=== PATIENT | male | born 1950 | race Caucasian/White ===

== ENCOUNTER 2022-03-08 19:15 | Emergency (ER) | payer BC ==
[2022-03-08] MEDS ORDERED: METOCLOPRAMIDE HCL INJECTION 10 MG/2 ML VIAL IVPUSH ONE (19:55)
[2022-03-08] MEDS ORDERED: SODIUM CHLORIDE 0.9% 500 ML INFUS.BAG IV ONE (19:55)
[2022-03-08 20:02] VITALS: RESP 20; TEMP 98; BMI 28.8
[2022-03-08] MEDS ORDERED: BEBTELOVIMAB (EUA) 175 MG/2 ML VIAL IVPUSH ONE (21:15)
[2022-03-08 21:44] LABS: BASO % 0.9 % (0-2.0); EOS % 0.1 % (0-4.5); HEMATOCRIT 44.4 % (35.4-49); HEMOGLOBIN 15.7 GM/dL (11.7-16.9); LYMPH % 25.9 % (8-40); MCH 30.7 pg (25.7-33.7); MCHC 35.3 g/dl (32.0-35.9); MEAN CELL VOLUME 86.9 fl (80-96); MEAN PLT VOLUME 8.3 fl (7.5-11.1); MONO % 10.5 % (3.8-10.2); NEUT % 62.6 % (42.8-82.8); PLATELET COUNT 200 10^3/uL (134-434); RDW 13.4 % (11.9-15.9); WHITE BLOOD COUNT 5.3 K/mm3 (4.0-10.0)
[2022-03-08 22:03] LABS: CALCIUM 8.8 mg/dL (8.5-10.1)
[2022-03-08 22:04] LABS: ALBUMIN 3.6 g/dl (3.4-5.0)
[2022-03-08 22:07] LABS: CREATININE 1.5 mg/dL (0.55-1.3)
[2022-03-08 22:09] LABS: BILIRUBIN,TOTAL 0.8 mg/dL (0.2-1); TOT PROT 7.4 g/dl (6.4-8.2)
[2022-03-08 23:51] VITALS: BP 127/77; PULSE 95
== END 2022-03-08 23:50 | disposition home or self-care (01) ==
LOC: JER 19:15
PROC: 3E03329 Introduction of Other Anti-infective into Peripheral Vein, Percutaneous Approach (ICD-10-PCS; principal; 2022-03-08)
PROC: 3E033GC Introduction of Other Therapeutic Substance into Peripheral Vein, Percutaneous Approach (ICD-10-PCS; 2022-03-08)
DX: U07.1 COVID-19 (principal); R42 Dizziness and giddiness
CPT/HCPCS: 0241U-QW; 36415; 70450-TC; 80053; 84484; 85025; 96374; 96375; 99284-25; M0222; Q0222

== ENCOUNTER 2022-08-03 15:50 | Inpatient (IN) | payer OTHER, BC ==
[2022-08-03 17:25] VITALS: BMI 28.8
[2022-08-03] MEDS ORDERED: ACETAMINOPHEN 500 MG TABLET (FP) PO ONE (18:22)
[2022-08-03] MEDS ORDERED: SODIUM CHLORIDE 1,000 ML IV STA (18:28)
[2022-08-03] MEDS ORDERED: ONDANSETRON 4 MG/2 ML VIAL ONE (20:19)
[2022-08-03] MEDS ORDERED: ACETAMINOPHEN 500 MG TABLET (FP) ONE (20:20)
[2022-08-03] MEDS ORDERED: ONDANSETRON 4 MG/2 ML VIAL IVPUSH ONE (20:33)
[2022-08-03 20:39] LABS: BASO % 1.5 % (0-2.0); EOS % 0.1 % (0-4.5); HEMATOCRIT 43.4 % (35.4-49); HEMOGLOBIN 14.6 GM/dL (11.7-16.9); LYMPH % 11.8 % (8-40); MCH 29.7 pg (25.7-33.7); MCHC 33.7 g/dl (32.0-35.9); MEAN PLT VOLUME 7.8 fl (7.5-11.1); MONO % 8.1 % (3.8-10.2); NEUT % 78.5 % (42.8-82.8); PLATELET COUNT 340 10^3/uL (134-434); RBC 4.93 M/mm3 (4.00-5.60); RDW 13.8 % (11.9-15.9); WHITE BLOOD COUNT 9.9 K/mm3 (4.0-10.0)
[2022-08-03 21:04] LABS: CALCIUM 9.5 mg/dL (8.5-10.1)
[2022-08-03 21:05] LABS: BLOOD UREA NITROGEN 16.8 mg/dL (7-18)
[2022-08-03 21:09] LABS: CREATININE 1.6 mg/dL (0.55-1.3); TOT PROT 8.4 g/dl (6.4-8.2)
[2022-08-03 21:10] LABS: BILIRUBIN,TOTAL 0.9 mg/dL (0.2-1)
[2022-08-03 21:31] LABS: INR 1.21 (0.83-1.09)
[2022-08-03 21:34] LABS: ACTIVATED PTT 27.7 SECONDS (25.2-36.5)
[2022-08-03 21:43] LABS: MAGNESIUM 1.8 mg/dL (1.8-2.4)
[2022-08-03 21:51] LABS: N-TERMINAL BNP 3864.4 pg/ml (5-125)
[2022-08-03] MEDS ORDERED: IBUPROFEN 400 MG TABLET (FP) PO ONE ×2 (22:04→22:37)
[2022-08-03] MEDS ORDERED: METOPROLOL TARTRATE 50 MG TABLET (FP) PO ONE (22:10)
[2022-08-03] MEDS ORDERED: METOPROLOL TARTRATE 50 MG TABLET (FP) ONE (22:37)
[2022-08-03] MEDS ORDERED: SODIUM CHLORIDE 1,000 ML IV SCH (23:15)
[2022-08-04] MEDS ORDERED: PNEUMOC 20-VAL CONJ-DIP CRM/PF 0.5 ML SYRINGE IM ONE (08:00)
[2022-08-04 08:35] LABS: INR 1.18 (0.83-1.09); PROTHROMBIN TIME (PATIENT) 13.6 SEC (9.7-13.0)
[2022-08-04 08:38] LABS: BASO % 0.6 % (0-2.0); EOS % 1.6 % (0-4.5); HEMATOCRIT 39.5 % (35.4-49); HEMOGLOBIN 13.4 GM/dL (11.7-16.9); LYMPH % 23.7 % (8-40); MCH 29.8 pg (25.7-33.7); MEAN CELL VOLUME 87.6 fl (80-96); MONO % 12.3 % (3.8-10.2); NEUT % 61.8 % (42.8-82.8); PLATELET COUNT 302 10^3/uL (134-434); RDW 13.7 % (11.9-15.9); WHITE BLOOD COUNT 8.7 K/mm3 (4.0-10.0)
[2022-08-04 08:54] LABS: ALBUMIN 3.2 g/dl (3.4-5.0); CALCIUM 8.5 mg/dL (8.5-10.1); MAGNESIUM 1.9 mg/dL (1.8-2.4)
[2022-08-04 08:56] LABS: TOT PROT 6.8 g/dl (6.4-8.2)
[2022-08-04 08:59] LABS: CREATININE 1.3 mg/dL (0.55-1.3); PHOSPHOROUS 3.2 mg/dL (2.5-4.9)
[2022-08-04] MEDS ORDERED: TERAZOSIN HCL 2 MG CAPSULE PO SCH (10:00)
[2022-08-04] MEDS ORDERED: APIXABAN 5 MG TABLET PO SCH (10:00)
[2022-08-04] MEDS ORDERED: amLODIPine BESYLATE 10 MG TABLET (FP) PO SCH (10:00)
[2022-08-04] MEDS: LOSARTAN 50MG/HCTZ 12.5MG 1 TAB PO SCH (10:27)
[2022-08-04] MEDS: ATORVASTATIN CA 10 MG TABLET (FP) PO SCH (10:28)
[2022-08-04] MEDS: APIXABAN 5 MG TABLET PO SCH ×2 (10:28→21:47)
[2022-08-04 14:10] LABS: EPI CELLS 2 /uL (0-25.1); HYALINE CASTS 1 /uL (0-3.1); PH,URINE 5.5 (5.0-8.0); URINE APPEARANCE CLEAR; URINE BACTERIA 1 /uL (0-1359); URINE BILIRUBIN NEGATIVE (NEGATIVE); URINE COLOR YELLOW; URINE GLUCOSE (UA) NEGATIVE (NEGATIVE); URINE KETONE NEGATIVE (NEGATIVE); URINE LEUK ESTERASE NEGATIVE (NEGATIVE); URINE NITRITE NEGATIVE (NEGATIVE); URINE PROTEIN TRACE (NEGATIVE); URINE RBC 12 /uL (0-23.9); URINE WBC 1 /uL (0-25.8)
[2022-08-04 16:59] LABS: ARTERIAL BLD GAS O2 SATURATION 92.8 % (95-98); ARTERIAL BLOOD GAS BASE EXCESS 0.7 mmol/L (-2-2); ARTERIAL BLOOD GAS PO2 62.1 mmHg (80-100); ARTERIAL BLOOD GAS pH 7.445 (7.350-7.450)
[2022-08-04 17:01] LABS: ALLENS TEST POSITIVE
[2022-08-05] MEDS: ACETAMINOPHEN 325 MG TABLET (FP) PO PRN ×2 (00:47→08:39)
[2022-08-05 07:47] LABS: BASO % 0.5 % (0-2.0); EOS % 2.6 % (0-4.5); HEMATOCRIT 41.7 % (35.4-49); HEMOGLOBIN 13.7 GM/dL (11.7-16.9); LYMPH % 30.4 % (8-40); MCH 28.9 pg (25.7-33.7); MCHC 32.9 g/dl (32.0-35.9); MEAN PLT VOLUME 7.9 fl (7.5-11.1); MONO % 9.8 % (3.8-10.2); NEUT % 56.7 % (42.8-82.8); PLATELET COUNT 287 10^3/uL (134-434); RBC 4.73 M/mm3 (4.00-5.60); RDW 13.5 % (11.9-15.9); WHITE BLOOD COUNT 7.7 K/mm3 (4.0-10.0)
[2022-08-05 08:02] LABS: BLOOD UREA NITROGEN 19.3 mg/dL (7-18)
[2022-08-05 08:03] LABS: CREATININE 1.2 mg/dL (0.55-1.3)
[2022-08-05 08:05] LABS: CALCIUM 8.8 mg/dL (8.5-10.1); MAGNESIUM 2.1 mg/dL (1.8-2.4); PHOSPHOROUS 3.2 mg/dL (2.5-4.9)
[2022-08-05] MEDS ORDERED: ALPRAZolam 0.25 MG TABLET PO PRN (08:12)
[2022-08-05] MEDS: amLODIPine BESYLATE 5 MG TABLET (FP) PO SCH (11:16)
[2022-08-05] MEDS: guaiFENesin 200 MG/10 ML 10 ML UNIT-DOSE CUPS PO PRN (11:16)
[2022-08-05] MEDS: LOSARTAN 50MG/HCTZ 12.5MG 1 TAB PO SCH (11:17)
[2022-08-05] MEDS: APIXABAN 5 MG TABLET PO SCH ×2 (11:17→21:30)
[2022-08-05] MEDS: TERAZOSIN HCL 1 MG CAPSULE PO SCH (11:18)
[2022-08-05] MEDS: ATORVASTATIN CA 10 MG TABLET (FP) PO SCH (11:22)
[2022-08-05] MEDS: FLUTICASONE PROP 0.05% 16 GM NASAL SPRAY NS SCH (21:31)
[2022-08-06 08:25] LABS: BASO % 0.6 % (0-2.0); EOS % 2.4 % (0-4.5); HEMATOCRIT 42.9 % (35.4-49); LYMPH % 23.4 % (8-40); MCH 28.8 pg (25.7-33.7); MCHC 32.7 g/dl (32.0-35.9); MEAN CELL VOLUME 87.9 fl (80-96); MEAN PLT VOLUME 8.3 fl (7.5-11.1); MONO % 6.6 % (3.8-10.2); PLATELET COUNT 315 10^3/uL (134-434); RBC 4.88 M/mm3 (4.00-5.60); RDW 13.6 % (11.9-15.9); WHITE BLOOD COUNT 11.8 K/mm3 (4.0-10.0)
[2022-08-06 08:57] LABS: BLOOD UREA NITROGEN 23.3 mg/dL (7-18)
[2022-08-06 08:59] LABS: CALCIUM 9.1 mg/dL (8.5-10.1)
[2022-08-06 09:00] LABS: MAGNESIUM 2.1 mg/dL (1.8-2.4); PHOSPHOROUS 3.9 mg/dL (2.5-4.9)
[2022-08-06 09:01] LABS: CREATININE 1.4 mg/dL (0.55-1.3)
[2022-08-06] MEDS: guaiFENesin 200 MG/10 ML 10 ML UNIT-DOSE CUPS PO PRN (09:48)
[2022-08-06] MEDS: TERAZOSIN HCL 1 MG CAPSULE PO SCH (09:49)
[2022-08-06] MEDS: DOXYCYCLINE HYCLATE 100 MG CAPSULE PO SCH ×2 (09:51→17:21)
[2022-08-06] MEDS: APIXABAN 5 MG TABLET PO SCH ×2 (09:51→22:09)
[2022-08-06] MEDS: amLODIPine BESYLATE 5 MG TABLET (FP) PO SCH (09:52)
[2022-08-06] MEDS: CEFTRIAXONE 1 GM in DEXTROSE 5%-WATER - 50 ML IVPB SCH (09:52)
[2022-08-06] MEDS: LOSARTAN 50MG/HCTZ 12.5MG 1 TAB PO SCH (09:52)
[2022-08-06] MEDS ORDERED: BENZOCAINE/MENTH/CETYLPYRD CL 1 EACH LOZENGE MM PRN (10:10)
[2022-08-06] MEDS ORDERED: diphenhydrAMINE HCL 25 MG CAPSULE (FP) PO ONE ×2 (10:12→13:00)
[2022-08-06] MEDS: ATORVASTATIN CA 10 MG TABLET (FP) PO SCH (13:43)
[2022-08-06] MEDS: FLUTICASONE PROP 0.05% 16 GM NASAL SPRAY NS SCH (13:43)
[2022-08-06] MEDS: MELATONIN 5 MG TABLETS PO PRN (22:09)
[2022-08-06] MEDS: ACETAMINOPHEN 325 MG TABLET (FP) PO PRN (22:11)
[2022-08-07] MEDS: FLUTICASONE PROP 0.05% 16 GM NASAL SPRAY NS SCH ×3 (06:19→21:54)
[2022-08-07] MEDS: ACETAMINOPHEN 325 MG TABLET (FP) PO PRN (07:41)
[2022-08-07 08:08] LABS: HEMATOCRIT 42.3 % (35.4-49); MCH 29.1 pg (25.7-33.7); MCHC 33.1 g/dl (32.0-35.9); MEAN CELL VOLUME 87.9 fl (80-96); MEAN PLT VOLUME 8.4 fl (7.5-11.1); PLATELET COUNT 315 10^3/uL (134-434); RBC 4.81 M/mm3 (4.00-5.60); RDW 13.6 % (11.9-15.9); WHITE BLOOD COUNT 9.9 K/mm3 (4.0-10.0)
[2022-08-07 08:34] LABS: MAGNESIUM 1.9 mg/dL (1.8-2.4)
[2022-08-07 08:37] LABS: CALCIUM 8.9 mg/dL (8.5-10.1)
[2022-08-07 08:38] LABS: BLOOD UREA NITROGEN 24.1 mg/dL (7-18); CREATININE 1.5 mg/dL (0.55-1.3); PHOSPHOROUS 4.2 mg/dL (2.5-4.9)
[2022-08-07] MEDS: DOXYCYCLINE HYCLATE 100 MG CAPSULE PO SCH ×2 (09:05→17:45)
[2022-08-07] MEDS: TERAZOSIN HCL 1 MG CAPSULE PO SCH (09:05)
[2022-08-07] MEDS: ATORVASTATIN CA 10 MG TABLET (FP) PO SCH (09:05)
[2022-08-07] MEDS: amLODIPine BESYLATE 5 MG TABLET (FP) PO SCH (09:05)
[2022-08-07] MEDS: CEFTRIAXONE 1 GM in DEXTROSE 5%-WATER - 50 ML IVPB SCH (09:05)
[2022-08-07] MEDS: APIXABAN 5 MG TABLET PO SCH ×2 (10:51→21:53)
[2022-08-07] MEDS: POTASSIUM CHLORIDE TABS 20 MEQ TABLET.ER (FP) PO SCH (21:53)
[2022-08-07] MEDS: MELATONIN 5 MG TABLETS PO PRN (21:58)
[2022-08-08] MEDS: ACETAMINOPHEN 325 MG TABLET (FP) PO PRN (03:20)
[2022-08-08 08:08] LABS: BASO % 0.8 % (0-2.0); EOS % 2.7 % (0-4.5); HEMATOCRIT 41.1 % (35.4-49); HEMOGLOBIN 14.1 GM/dL (11.7-16.9); LYMPH % 28.3 % (8-40); MCH 29.7 pg (25.7-33.7); MCHC 34.2 g/dl (32.0-35.9); MEAN CELL VOLUME 86.8 fl (80-96); MEAN PLT VOLUME 8.5 fl (7.5-11.1); MONO % 7.1 % (3.8-10.2); NEUT % 61.1 % (42.8-82.8); PLATELET COUNT 349 10^3/uL (134-434); RBC 4.74 M/mm3 (4.00-5.60); RDW 13.6 % (11.9-15.9); WHITE BLOOD COUNT 10.8 K/mm3 (4.0-10.0)
[2022-08-08 08:47] LABS: BLOOD UREA NITROGEN 22.7 mg/dL (7-18); CALCIUM 9.2 mg/dL (8.5-10.1)
[2022-08-08 08:51] LABS: CREATININE 1.4 mg/dL (0.55-1.3); PHOSPHOROUS 3.3 mg/dL (2.5-4.9)
[2022-08-08] MEDS: DOXYCYCLINE HYCLATE 100 MG CAPSULE PO SCH (09:51)
[2022-08-08] MEDS: POTASSIUM CHLORIDE TABS 20 MEQ TABLET.ER (FP) PO SCH (09:51)
[2022-08-08] MEDS: APIXABAN 5 MG TABLET PO SCH (09:51)
[2022-08-08] MEDS: ATORVASTATIN CA 10 MG TABLET (FP) PO SCH (09:51)
[2022-08-08] MEDS: amLODIPine BESYLATE 5 MG TABLET (FP) PO SCH (09:52)
[2022-08-08] MEDS: CEFTRIAXONE 1 GM in DEXTROSE 5%-WATER - 50 ML IVPB SCH (09:52)
[2022-08-08] MEDS: TERAZOSIN HCL 1 MG CAPSULE PO SCH (09:52)
[2022-08-08] MEDS: FLUTICASONE PROP 0.05% 16 GM NASAL SPRAY NS SCH (09:56)
[2022-08-08 15:09] VITALS: BP 111/59; PULSE 78; RESP 20; TEMP 98.6
== END 2022-08-08 17:31 | disposition home or self-care (01) | DRG 308 ==
LOC: JER 15:50 → JERBED 22:35 → J4W 08-04 03:36
PROVIDERS: ADMIT Internal Medicine; ATTEND Internal Medicine
DX: I48.19 Other persistent atrial fibrillation (principal); J18.9 Pneumonia, unspecified organism; N17.9 Acute kidney failure, unspecified; I10 Essential (primary) hypertension; I48.91 Unspecified atrial fibrillation; E78.5 Hyperlipidemia, unspecified; N40.0 Benign prostatic hyperplasia without lower urinary tract symptoms; J06.9 Acute upper respiratory infection, unspecified
CPT/HCPCS: 0241U-QW; 36415; 36600; 71045-TC-FY; 71046-TC-FY; 71250-TC; 71275-TC; 76775-TC; 80048; 80053; 80061; 81003; 82550; 82570; 82803; 83605; 83735; 83880; 83935; 84100; 84300; 84436; 84443; 84484; 85025; 85027; 85610; 85730; 87040; 87086; 87899; 93005; 93010; 93306-TC; 99285-25; Q9967